=== PATIENT | male | born 1995 | race African-American/Black ===

== ENCOUNTER 2017-04-23 14:09 | Emergency (ER) | payer BC, OTHER ==
[~2017-04-23] VITALS: Ht 172.7 cm; Wt 89.8 kg
--- NOTE | 2017-04-23 14:54 | ED Upper Extremity ---
General Chief Complaint: Laceration Stated Complaint: L HAND FINGERS LAC Nursing Triage Note: PT CUT L INDEX FINGER WITH A KNIFE AT WORK. Nursing Sepsis Screen: No Definite Risk Source: patient Exam Limitations: no limitations History of Present Illness Time seen by provider: 14:51 Initial Comments Laceration to the tip of the left pointer finger from a knife while at work at [facility] [employer]. Onset: just prior to arrival Severity: moderate Pain/Injury Location: left 2nd finger Modifying Factors: Worse With Movement Constitutional: see HPI EENTM: see HPI Respiratory: no symptoms reported Cardiovascular: no symptoms reported Genitourinary: no symptoms reported Musculoskeletal: no symptoms reported Skin: no symptoms reported Psychiatric/Neurological: No Symptoms Reported Past Aacpfse-Hrymta-Ysmopt Hx Patient Social History Alcohol Use: Occasionally Uses Recreational Drug Use: No Smoking Status: Never a Smoker Recent Foreign Travel: No Contact w/Someone Who Travel: No Recent Infectious Disease Expo: No Recent Hopitalizations: No Physical Abuse: No Sexual Abuse: No Surgeries History of Surgeries: No Respiratory History of Respiratory Disorde: No Cardiovascular History of Cardiac Disorders: No Neurological History of Neurological Disord: No Genitourinary History of Genitourinary Disor: No Gastrointestinal History of Gastrointestinal Di: No Musculoskeletal History of Musculoskeletal Dis: No Endocrine History of Endocrine Disorders: No HEENT History of HEENT Disorders: No Cancer History of Cancer: No Psychosocial History of Psychiatric Problem: No Suicide Risk Score: 0 Integumentary History of Skin or Integumenta: No Blood Transfusions History of Blood Disorders: No Physical Exam Vital Signs Vital Sign - Last 12Hours 04/23/17 14:39 Temp 98.0 Pulse 76 Resp 13 B/P (MAP) 165/107 Pulse Ox 98 O2 Delivery Room Air Capillary Refill : Less Than 3 Seconds General Appearance: WD/WN, no apparent distress HEENT: PERRL/EOMI, normal ENT inspection Neck: non-tender, full range of motion Cardiovascular: regular rate, rhythm, no murmur Respiratory: no respiratory distress, no accessory muscle use Gastrointestinal: normal bowel sounds, non tender, soft Shoulder: normal inspection, non-tender Elbow/Forearm: normal inspection, non-tender, Left Hand: normal inspection, non-tender, Left, laceration (superficial laceration to tip left pointer finger. Oozing blood. Tourniquet applied to finger, washed with chlorhexidine and saline and irrigated, closed with dermabond. ) Neurologic/Psychiatric: alert, normal mood/affect, oriented x 3 Skin: normal color, warm/dry Progress/Results/Core Measures Results/Orders Vital Signs/I&O Vital Sign - Last 12Hours 04/23/17 14:39 Temp 98.0 Pulse 76 Resp 13 B/P (MAP) 165/107 Pulse Ox 98 O2 Delivery Room Air Blood Pressure Mean: 126 Departure Impression Impression: Primary Impression: Fingertip avulsion Disposition: HOME, SELF-CARE Condition: Stable Departure-Patient Inst. Decision time for Depature: 14:53 Referrals: NO,LOCAL PHYSICIAN (PCP/Family) Primary Care Physician Patient Instructions: Laceration Repair With Glue (DC) Add. Discharge Instructions: 1. REturn to ER for any concerns 2. Allow the glue to fall off on its own in 3-5 days. 3. Do not apply any petroleum based products such as vaseline or triple antibiotic ointment/neosoprin as this will dissolve the glue. Gentle washing with soap and water will be ok All discharge instructions reviewed with patient and/or family. Voiced understanding. JAIMIE HANLEY APRN Apr 23, 2017 14:54
[2017-04-23 15:00] VITALS: BP 157/99
== END 2017-04-23 14:59 | disposition home or self-care (01) ==
LOC: ER 14:11
DX: S61.211A Laceration without foreign body of left index finger without damage to nail, initial encounter (principal); W26.0XXA Contact with knife, initial encounter; Y92.511 Restaurant or cafe as the place of occurrence of the external cause
CPT/HCPCS: 99282